=== PATIENT | female | born 1945 | race Hispanic/Latino ===

== ENCOUNTER → 2017-10-30 | Outpatient (CLI) | payer MEDICARE ==
[~2017-10-30] MED LIST: ATOR10TA PO; FLUT16H NASAL; HYDR25TA PO; LOSA50TA37 PO; METO100T7 PO; PRED10TA3 PO
== END | disposition home or self-care (01) ==
LOC: OIH 14:23
PROVIDERS: ATTEND Family Medicine
DX: R05 Cough (principal)
CPT/HCPCS: 71046

== ENCOUNTER 2019-01-21 05:35 | Day surgery (SDC) | payer MEDICARE ==
[~2019-01-21] VITALS: Ht 165.1 cm; Wt 83.5 kg
[~2019-01-21 05:35] MED LIST changes: +ASPI-555 PO; -ATOR10TA PO; +CELE50CA2 PO; -FLUT16H NASAL; +IBUP-2784 PO; -LOSA50TA37 PO; +LOSA50TA64 PO; +METO50TA9 PO; -PRED10TA3 PO; +RANI150C4 PO; +ROSU20TA31 PO
[2019-01-21] MEDS ORDERED: SODIUM CHLORIDE 0.9% 1000ML 1,000 ML IV ONE ×2 (05:36→05:39)
[2019-01-21 06:02] VITALS: BP 153/62
[2019-01-21] MEDS ORDERED: PROPOFOL 10 MG/ML 20ML VIAL IV ONE ×2 (06:23)
[2019-01-21] MEDS ORDERED: LIDOCAINE HCL 1% 20 ML VIAL ONE (06:24)
[2019-01-21] MEDS ORDERED: SIMETHICONE 40 MG/0.6 ML ML ONE (06:39)
[2019-01-21 07:09] VITALS: BP 106/58
[2019-01-21 07:14] VITALS: BP 121/61
[2019-01-21 07:19] VITALS: BP 118/58
== END 2019-01-21 07:48 | disposition home or self-care (01) ==
LOC: DAH 05:35 → ENDO 05:35
PROVIDERS: ATTEND Internal Medicine
DX: D12.4 Benign neoplasm of descending colon (principal); K29.50 Unspecified chronic gastritis without bleeding; K57.30 Diverticulosis of large intestine without perforation or abscess without bleeding; K44.9 Diaphragmatic hernia without obstruction or gangrene; I10 Essential (primary) hypertension; E78.5 Hyperlipidemia, unspecified; K21.9 Gastro-esophageal reflux disease without esophagitis; Z80.0 Family history of malignant neoplasm of digestive organs; Z86.010 Personal history of colon polyps; Z90.49 Acquired absence of other specified parts of digestive tract; Z79.82 Long term (current) use of aspirin; Z79.899 Other long term (current) drug therapy
CPT/HCPCS: 43239; 45380; 88305; A4606; J2704 ×2; J7030 ×2

== ENCOUNTER → 2020-08-11 | Outpatient (CLI) | payer OTHER ==
[~2020-08-11] MED LIST changes: -ASPI-555 PO; +ASPI-556 PO; -METO100T7 PO
== END | disposition home or self-care (01) ==
LOC: RAH 10:32
PROVIDERS: ATTEND Internal Medicine Cardiovascular Disease
DX: Z13.6 Encounter for screening for cardiovascular disorders (principal)
CPT/HCPCS: 75571

== ENCOUNTER → 2023-11-21 | Outpatient (CLI) | payer OTHER ==
[~2023-11-21] MED LIST changes: +ATOR40TA69 PO; -CELE50CA2 PO; +CEPH500B PO; +CHLO4TAB32 PO; +CHOL1CAP PO; -IBUP-2784 PO; -LOSA50TA64 PO; +METO100T7 PO; -METO50TA9 PO; +OMEP40CA21 PO; -RANI150C4 PO; -ROSU20TA31 PO; +TRAM100T40 PO
[2023-11-21 12:11] LABS: BASOPHILS # (AUTO) 0.04 K/uL (0.00-0.20); BASOPHILS % (AUTO) 0.6 % (0.0-5.0); EOSINOPHILS # (AUTO) 0.05 K/uL (0.00-0.70); EOSINOPHILS % (AUTO) 0.8 % (0.0-8.0); HEMATOCRIT 43.4 % (36-48); IMMATURE GRANULOCYTE ABSOLUTE 0.02 K/uL (0-1); LYMPHOCYTES # (AUTO) 1.8 K/uL (1.0-4.8); LYMPHOCYTES % (AUTO) 28.1 % (21.0-51.0); MEAN CORPUSCULAR HEMOGLOBIN 29.4 pg (27.0-33.0); MEAN CORPUSCULAR HGB CONC 33.2 g/dL (32.0-36.0); MEAN CORPUSCULAR VOLUME 88.8 fL (79-99); MONOCYTES # (AUTO) 0.5 K/uL (0.1-1.0); MONOCYTES % (AUTO) 8.4 % (3.0-13.0); NEUTROPHILS # (AUTO) 3.8 K/uL (1.8-7.7); NEUTROPHILS % (AUTO) 61.8 % (40.0-77.0); PLATELET COUNT (AUTO) 221 K/uL (130-400); RED BLOOD CELL COUNT(AUTO) 4.89 MIL/uL (4.00-5.50); RED CELL DISTRIBUTION WIDTH 13.6 % (11.0-15.5); WHITE BLOOD COUNT (AUTO) 6.2 K/uL (4.8-10.8)
[2023-11-21 12:44] LABS: ALBUMIN 3.8 g/dL (3.5-5.0); BILIRUBIN,TOTAL 0.6 mg/dL (0.2-1.0); CREATININE 0.8 mg/dL (0.5-1.0); MAGNESIUM 1.7 mg/dL (1.80-2.40); POTASSIUM 3.1 mmol/L (3.5-5.1); TOTAL PROTEIN, SERUM 7.6 g/dL (6.0-8.3)
== END | disposition home or self-care (01) ==
LOC: LAB 10:56
PROVIDERS: ATTEND Internal Medicine Cardiovascular Disease
DX: I10 Essential (primary) hypertension (principal)
CPT/HCPCS: 36415; 80053; 80061; 83735; 85025

== ENCOUNTER → 2024-01-02 | Outpatient (CLI) | payer OTHER ==
[2024-01-02 12:38] LABS: ALBUMIN 3.7 g/dL (3.5-5.0); BILIRUBIN,TOTAL 0.6 mg/dL (0.2-1.0); MAGNESIUM 1.8 mg/dL (1.80-2.40); POTASSIUM 3.6 mmol/L (3.5-5.1); TOTAL PROTEIN, SERUM 7.7 g/dL (6.0-8.3)
== END | disposition home or self-care (01) ==
LOC: LAB 11:10
PROVIDERS: ATTEND Internal Medicine Cardiovascular Disease
DX: I10 Essential (primary) hypertension (principal)
CPT/HCPCS: 36415; 80053; 83735; 83880

== ENCOUNTER → 2024-03-12 | Outpatient (CLI) | payer OTHER ==
--- NOTE | 2024-03-17 10:45 | HMCSR ---
APPROVED REPORT Laterality: Bilateral VELOCITY AND DOPPLER WAVEFORM ANALYSIS FISH AND WILDLIFE WARDEN (R) 156.6cm/sec, Triphasic, FISH AND WILDLIFE WARDEN (L) 140.3cm/sec, Triphasic, Prof Fem Art. (R) 58.0cm/sec, Biphasic, Prof Fem Art. (L) 73.4cm/sec, Biphasic, Fem Art Prox. (R) 114.2cm/sec, Triphasic, Fem Art Prox. (L) 102.8cm/sec, Triphasic, Fem Art Mid. (R) 127.0cm/sec, Biphasic, Fem Art Mid. (L) 133.8cm/sec, Biphasic, Fem Art Dist (R) 136.7cm/sec, Biphasic, Fem Art Dist. (L) 84.8cm/sec, Biphasic, Pop Art(AK) (R) 73.2cm/sec, Triphasic, Pop Art (AK) (L) 71.8cm/sec, Biphasic, Pop Art (Fossa)(R) 74.5cm/sec, Biphasic, Pop Art (Fossa) (L) 64.9cm/sec, Biphasic, Pop Art(BK) (R) 73.2cm/sec, Biphasic, Pop Art (BK) (L) 87.0cm/sec, Biphasic, PROPERTY MANAGER Prox. (R) 64.9cm/sec, Biphasic, PROPERTY MANAGER Prox. (L) 81.4cm/sec, Triphasic, PROPERTY MANAGER Mid. (R) 98.0cm/sec, Biphasic, PROPERTY MANAGER Mid. (L) 103.5cm/sec, Triphasic, PROPERTY MANAGER Dist. (R) 82.8cm/sec, Biphasic, PROPERTY MANAGER Dist. (L) 88.3cm/sec, Biphasic, Per Art Dist. (R) 40.0cm/sec, Biphasic, Per Art Dist. (L) 45.6cm/sec, Biphasic, CHAS Prox. (R) 60.7cm/sec, Biphasic, CHAS Prox. (L) 117.3cm/sec, Biphasic, CHAS Mid. (R) 45.6cm/sec, Biphasic CHAS Mid. (L) 45.6cm/sec, Biphasic, CHAS Dist. (R) 73.2cm/sec, Biphasic, CHAS Dist. (L) 66.3cm/sec, Biphasic, Technologist Impression Diffuse atherosclerosis throughout the bilateral lower extremities with no evidence of significant ar terial insufficiency. Conclusion Diffuse atherosclerosis throughout the bilateral lower extremities with no evidence of significant ar terial insufficiency. Conclusion Diffuse atherosclerosis throughout the bilateral lower extremities with no evidence of significant ar terial insufficiency.
== END | disposition home or self-care (01) ==
LOC: SHCH 10:40
PROVIDERS: ATTEND Student in an Organized Health Care Education/Training Program
DX: R06.09 Other forms of dyspnea (principal)
CPT/HCPCS: 93925

== ENCOUNTER → 2024-05-16 | Outpatient (CLI) | payer OTHER ==
[2024-05-16] MEDS: REGADENOSON 0.4 MG/5 ML PF SYG IVP ONE (11:06)
--- NOTE | 2024-05-20 16:41 | HMCSR ---
APPROVED REPORT Height: 5 ft 6in Weight: 176 lbs TEST INDICATIONS CAD The imaging protocol used to acquire images was Rest Tc-99m/stress Tc-99m 1 day Consent: The procedure was explained and understood by the patient. Informerd consent was witnessed Aj RICO RN First, low dose rest was performed then high dose stress. RESTING DATA: The resting ekg shows: NSR Rest SPECT myocardial perfusion imaging was performed in supine position 80 minutes following the int ravenous injection of 11.0 mCi of Tc-99 Sestamibi. Time of rest injection: 08:26: Date: 05/16/2024 Time of rest imagin:46: Date: 05/16/2024 PHARMACOLOGIC STRESS: Pharmacologic stress test was performed by injecting regadenoson 0.4 mg IV push followed by the intra venous injection of 31.0 mCi of Tc-99 Sestamibi. Time of stress injection: 10:29: Date: 05/16/2024 Time of stress imagin:21: Date: 05/16/2024 Heart Rate at time of stress injection: 60 bpm. Gated Stress SPECT was performed 112 minutes after stress injection. The images were gated to evaluate regional wall motion and calculate left ventricular ejection fracti on. STRESS DETAILS Reason for Termination: Infusion complete Stress Symptoms: Dyspnea Max HR Achieved: 83 bpm % of APMHR Achieved: 59 Max Blood Pressure: 148/71 mmHg Stress ECG: NSR LEFT VENTRICLE Size: The left ventricular size is mildly dilated. Systolic Function:The left ventricular systolic function is normal. Wall Motion: No regional wall motion abnormalities noted. The left ventricular ejection fraction was calculated to be 72%.TID = . LV PERFUSION The rest and stress images show normal perfusion. Conclusion The left ventricular size is mildly dilated. The left ventricular systolic function is normal. No regional wall motion abnormalities noted. The rest and stress images show normal perfusion. The left ventricular ejection fraction was calculated to be 72%.
== END | disposition home or self-care (01) ==
LOC: SHCH 08:03
PROVIDERS: ATTEND Internal Medicine Cardiovascular Disease
DX: I25.10 Atherosclerotic heart disease of native coronary artery without angina pectoris (principal)
CPT/HCPCS: 78452; 93017; J2785; A9500 ×2